=== PATIENT | female | born 2000 ===

== ENCOUNTER 2022-08-14 20:14 | Emergency (ER) | payer SELFPAY ==
[2022-08-14] MEDS ORDERED: Sodium Chloride 0.9% 10 ML Syringe FLUSH PRN (20:48)
[2022-08-14 21:54] LABS: ANION GAP 14.6 mEq/L (7-13); CHLORIDE,CL 106 mmol/L (98-107); SODIUM,NA 143 mmol/L (136-145)
[2022-08-14 21:59] LABS: ESTIMATED GFR 78 mL/min (>=60)
[2022-08-14] MEDS ORDERED: Iopamidol 612 MG/ML 100 ML Bottle IVPUSH ONE (22:02)
[2022-08-14] MEDS ORDERED: Sodium Chloride 0.9% 1,000 ML IV ONE (22:29)
== END 2022-08-14 23:40 ==
LOC: DL.ED 20:14
DX: K81.9 Cholecystitis, unspecified (principal); Z88.0 Allergy status to penicillin
CPT/HCPCS: 36415; 74018; 74177; 80053; 83605; 83690; 85025; 86140; 96360; 99284; J7030; Q9967